=== PATIENT | female | born 1965 | race Caucasian/White ===

== ENCOUNTER → 2021-01-14 | Outpatient (CLI) | payer MEDICARE, OTHER ==
[~2021-01-14] MED LIST: FLAGYL500 MG PO; KEPPRA500 MG PO; LEVAQUIN500 MG PO; PRAVACHOL80 MG PO; PROTONIX40 MG PO; TYLENOL325 MG PO; VITAMIN B-121000 MCG PO; WOMEN'S DAILY1 EAC1 PO; ZOFRAN ODT 4 MG4 MG PO
== END ==
LOC: MAMO 08:27
DX: Z12.31 Encounter for screening mammogram for malignant neoplasm of breast (principal)
CPT/HCPCS: 77063; 77067

== ENCOUNTER → 2021-02-02 | Outpatient (CLI) | payer MEDICARE, OTHER | LOC: EROP 09:17 | DX: U07.1 COVID-19 (principal) | CPT/HCPCS: G0463 ==